=== PATIENT | female | born 1995 | race Two or more races ===

== ENCOUNTER 2019-02-06 14:14 | Inpatient (IN) | payer OTHER ==
[2019-02-06] MEDS ORDERED: BUTORPHANOL TARTRATE 1 MG/ML VIAL IVPB ONE (18:33)
[2019-02-06] MEDS ORDERED: PROMETHAZINE HCL 25 MG/1 ML VIAL IVPUSH ONE (18:33)
[2019-02-06] MEDS ORDERED: SODIUM PHOSPHATE/NA BIPHOS 133 ML ENEMA PR ONE (18:36)
[2019-02-06 18:43] VITALS: BMI 25.6
--- NOTE | 2019-02-06 18:43 | HP ---
Past Medical History - Primary Care Physician PCP:: Lauren Raphael - Admission Chief Complaint: 23 yrs , ectopic -1 , 39.1 weeks by sono admitted in labor .onset LP since 11.00 AM History of Present Illness: care at [address] [place] [address] Late registrant at 27 weeks on 11/14/18 from [facility] wt gain 10 lbs panel 11/14/18 O pos , hbsag neg, HEP c nr, HIV NEG, rpr nr, Rubella immune, Varicella immune , Sickle neg pap hgsil, Gc/Ct neg , Quantiferon neg , 1 hr Gtt 111, TFt wnl 36 weeks panel 12/20/18 gc/ct neg, gbs neg, hiv neg, h/h 11.7/34., plt 231 11/10/18 h/o uti diagnosed in ER Rx Po Macrobid bid x 7 days 11/21/18 sono 27.4 weeks , sliup, vx , cx short 1.8 cm funnelling , single UA , marginal cord insertion , prophylaxis 2 doses of steroid s were given pt had follow up with [facility] in [place] , records not available 12/11/18 colposcopy done History Source: Patient, Medical Record - Past Medical History MUD MILL TENDER: No: Migraine, Seizure Cardiovascular: No: HTN, Murmur Pulmonary: No: Asthma Gastrointestinal: No: Gastritis, GERD Renal/: Yes: UTI (11/10/18 treated with Macrobid x7 days) Reproductive: Yes: Ectopic (11/2017) ...: 2 ...Para: 0 ...Term: 0 ...: 0 ...Spon : 1 (Ectopic pregn Lt Tubal 11/14/2017) ...Induced : 0 ...LMP: 05/05/18 ... Weeks Gestation by Dates: 39.4 ...EDC by Dates: 02/09/19 ...EDC by Sono: 02/12/19 (39.1 weeks by sono ) Infectious Disease: No: AIDS, C-Diff, Herpes Zoster, HIV, MRSA, STD's, Tuberculosis, VREF, Other Psych: No: Addictions, Anxiety, Bipolar, Depression, Panic, Psychosis, Schizophrenia, Other Endocrine: No: Channing's Disease, [place]'s Disease, Diabetes Insipidus, Diabetes Mellitus, Hyperparathyroidism, Hyperthyroidism, Hypothyroidism, Osteopenia, SIADH, Other - Past Surgical History Hx Myomectomy: No Hx Transabdominal Cerclage: No Additional Surgical History: 11/2017 ? left salpingectomy partial for ectopic pregn at [facility] - Smoking History Have you smoked in the past 12 months: No - Alcohol/Substance Use Hx Alcohol Use: No History of Substance Use: reports: None Home Medications - Allergies Allergies/Adverse Reactions: Allergies Allergy/AdvReac Type Severity Reaction Status Date / Time No Known Allergies Allergy Verified 02/06/19 14:57 - Home Medications Home Medications: Ambulatory Orders Ferrous Sulfate [Feosol] 325 mg PO DAILY 11/21/18 Vits96/Iron Fum/Folic [ Tablet] 1 each PO DAILY 11/21/18 Physical Exam - Maternity Vital Signs: Vital Signs Temperature 97.6 F 02/06/19 15:05 Pulse Rate 118 H 02/06/19 17:16 Respiratory Rate 17 02/06/19 17:16 Blood Pressure 126/74 02/06/19 17:16 O2 Sat by Pulse Oximetry (%) Wt 140 LB Constitutional: Yes: Well Nourished, Moderate Distress Eyes: Yes: WNL HENT: Yes: WNL, Normocephalic Neck: Yes: WNL Cardiovascular: Yes: WNL Lungs: Clear to auscultation Breast(s): Yes: WNL - Abdominal Exam/OB Fundal Height: 40 Number of Fetuses: Single Presentation: Vertex Contractions: Yes Regularity: Irregular (3-5 min) Intensity: Mild/Mod Monitor Mode: External Heart Rate (range): 140-150 Heart Rate Location: [facility] Accelerations: Uniform Decelerations: None - Vaginal Exam/OB Vaginal Bleediing: No Speculum Exam: No Dilatation (cm): 4 Effacement (%): 70 Amniotic Membrane Status: Intact Presentation: Vertex/Position Station: -3 - Physical Exam Musculoskeletal: Yes: WNL Extremities: Yes: WNL. No: Calf Tenderness Edema: Yes Edema: LLE: 1+, RLE: 1+ Integumentary: Yes: Body Piercing (tongue rings), Tattoos Deep Tendon Reflex Grade: Normal +2 Psychiatric: Yes: WNL, Alert, Oriented Problem List - Problems (1) with 39 completed weeks gestation Code(s): Z3A.39 - 39 WEEKS GESTATION OF (2) Labor established Code(s): RDR6868 - Assessment/Plan 23 yrs , ectopic x1 , 39 .1 weeks in labor , GBS neg , s/p steroid x2 doses at 28.5 weeks gestation due to short cx plan trial vaginal delivery pt is trying to avoid pain meds or epidural analgesia
[2019-02-06] MEDS ORDERED: DEXTROSE 5%-LACTATED RINGERS 1,000 ML IV SCH (18:45)
[2019-02-06] MEDS ORDERED: BUTORPHANOL TARTRATE 1 MG/ML VIAL ONE (21:46)
[2019-02-06] MEDS ORDERED: PROMETHAZINE HCL 25 MG/1 ML VIAL ONE (21:47)
[2019-02-06] MEDS ORDERED: OXYTOCIN 20 UNITS in 0.9% NS 20 UNIT/1,000 ML INFUS.BAG IV ONE (22:00)
[2019-02-06] MEDS ORDERED: LIDOCAINE HCL 1% PRESERVATIVE FREE - 30ML VIAL ONE (22:00)
[2019-02-06 22:04] LABS: BASO % 0.2 % (0-2.0); EOS % 0.6 % (0-4.5); HEMATOCRIT 38.6 % (32.4-45.2); HEMOGLOBIN 13.1 GM/dL (10.7-15.3); LYMPH % 21.3 % (8-40); MCH 30.7 pg (25.7-33.7); MCHC 34.1 g/dl (32.0-36.0); MONO % 8.6 % (3.8-10.2); NEUT % 69.3 % (42.8-82.8); PLATELET COUNT 261 K/MM3 (134-434); RBC 4.29 M/mm3 (3.60-5.2); WHITE BLOOD COUNT 12.1 K/mm3 (4.0-10.0)
[2019-02-06 22:21] LABS: INR 0.94 (0.83-1.09); PROTHROMBIN TIME (PATIENT) 11.1 SEC (9.7-13.0)
[2019-02-06 22:23] LABS: ACTIVATED PTT 28.8 SECONDS (25.2-36.5)
[2019-02-06 22:27] LABS: CALCIUM 9.5 mg/dL (8.5-10.1); CREATININE 0.6 mg/dL (0.55-1.3); POTASSIUM 3.8 mmol/L (3.5-5.1)
[2019-02-06] MEDS ORDERED: BENZOCAINE 20% 57 GM BOTTLE TP PRN (23:07)
[2019-02-06] MEDS ORDERED: BENZOCAINE 28 GM HEMORRHOIDAL OINTMENT TP PRN (23:07)
[2019-02-06] MEDS ORDERED: METHYLERGONOVINE MALEATE 0.2 MG/1 ML AMP IM PRN (23:07)
[2019-02-06] MEDS ORDERED: WITCH HAZEL 50% (TUCKS) 40 PAD/JAR PAD TP PRN (23:07)
[2019-02-06] MEDS ORDERED: oxyCODONE HCL 5 MG TABLET PO PRN (23:07)
[2019-02-06] MEDS ORDERED: BISACODYL 10 MG SUPP.RECT RC PRN (23:07)
[2019-02-06] MEDS ORDERED: OXYTOCIN 20 UNITS in 0.9% NS 20 UNIT/1,000 ML INFUS.BAG IV SCH (23:15)
--- NOTE | 2019-02-06 23:21 | PN ---
Delivery - Delivery Vaginal Delivery: No Problems, Spontaneous (, [place] position, tight loop of cord around neck , clamped cut released before delivery of shoulder , shoulders delivered without dofficulty .nasal & oral suction done at perineum . cord segment cut for cord gas , cord blood collected, 2 artery , on vein noted in the cord . .placenta was delivered with membranes , sent for pathology .episiotomy was given & was sutured in layers with chr catgut #2/0. bladder cathterized & emptied , IL exam mucosa & sphincter was intact. sponge count was correct) EBL (cc): 350 (urine out put 75 ml vivienne color ) Delivery, Single - Stages of Labor Date 1st Stage Initiatied: 02/06/19 Time 1st Stage Initiated: 11:00 Date 2nd Stage Initiated: 02/06/19 Time 2nd Stage Initiated: 22:00 Date of Delivery: 02/06/19 Time of Delivery: 22:10 Date Placenta Delivered: 02/06/19 Time Placenta Delivered: 22:20 Placenta: Yes: Spontaneous, Uterine Exploration - Condition of Infant License Issuer/Propagator Present: No Infant Gender: Female Weight: 5 lb 14 oz Position: Left, OA (tight loop of cord around neckx1 clamped cut) - 1 Minute Total Score: 9 5 Minutes Total Score: 9 - [place] Feeding Plan Initial Plan: Exclusive throughout hospitalization Remarks - Remarks Remarks: 23 yrs ectopic -1 , 39.1 weeks in labor . GbS neg h/o steroids x2 doses at 28.5 weeks given due to short cx intrapartum course uneventful v/s stable
[2019-02-07] MEDS: ACETAMINOPHEN 325 MG TABLET (FP) PO PRN ×2 (00:42→07:43)
[2019-02-07] MEDS: IBUPROFEN 600 MG TABLET (FP) PO PRN ×2 (00:43→07:42)
[2019-02-07] MEDS: FERROUS SO4 325 MG TABLET (FP) PO SCH ×2 (07:42→17:57)
[2019-02-07 08:19] LABS: BASO % 0.3 % (0-2.0); EOS % 0.2 % (0-4.5); HEMATOCRIT 34.7 % (32.4-45.2); HEMOGLOBIN 11.9 GM/dL (10.7-15.3); LYMPH % 17.4 % (8-40); MCHC 34.2 g/dl (32.0-36.0); MEAN CELL VOLUME 90.5 fl (80-96); MEAN PLT VOLUME 8.1 fl (7.5-11.1); MONO % 8.5 % (3.8-10.2); NEUT % 73.6 % (42.8-82.8); PLATELET COUNT 219 K/MM3 (134-434); RBC 3.84 M/mm3 (3.60-5.2); RDW 14.1 % (11.6-15.6); WHITE BLOOD COUNT 14.5 K/mm3 (4.0-10.0)
--- NOTE | 2019-02-07 08:55 | PN ---
Post Progress Note - Subjective Subjective: no c/o cramps bleeding less voided after delivery Post Day: 1 Type of Delivery: Vital Signs: Vital Signs Temperature 98.5 F 02/07/19 07:56 Pulse Rate 85 02/07/19 07:56 Respiratory Rate 18 02/07/19 07:56 Blood Pressure 126/79 02/07/19 07:56 O2 Sat by Pulse Oximetry (%) 100 02/06/19 23:30 Breast Exam: Yes: Soft, Other (BF). No: Engorged Uterus: Yes: Fundus Firm, Fundus below umbilicus, Non-tender Lochia: Yes: Rubra Lochia, amount: Moderate Extremities: Yes: Calves non-tender Perineum: Yes: Episiotomy (healing. no soreness) Activity: Ambulating - Labs Labs: CBC WBC 12.1 K/mm3 (4.0-10.0) H 02/06/19 21:00 RBC 4.29 M/mm3 (3.60-5.2) 02/06/19 21:00 Hgb 13.1 GM/dL (10.7-15.3) 02/06/19 21:00 Hct 38.6 % (32.4-45.2) 02/06/19 21:00 MCV 90.0 fl (80-96) 02/06/19 21:00 MCH 30.7 pg (25.7-33.7) 02/06/19 21:00 MCHC 34.1 g/dl (32.0-36.0) 02/06/19 21:00 RDW 14.0 % (11.6-15.6) 02/06/19 21:00 Plt Count 261 K/MM3 (134-434) 02/06/19 21:00 MPV 8.0 fl (7.5-11.1) 02/06/19 21:00 Absolute Neuts (auto) 8.4 K/mm3 (1.5-8.0) H 02/06/19 21:00 Neutrophils % 69.3 % (42.8-82.8) 02/06/19 21:00 Lymphocytes % 21.3 % (8-40) 02/06/19 21:00 Monocytes % 8.6 % (3.8-10.2) 02/06/19 21:00 Eosinophils % 0.6 % (0-4.5) 02/06/19 21:00 Basophils % 0.2 % (0-2.0) 02/06/19 21: Nucleated RBC % 0 % (0-0) 02/06/19 21:00 Problem List - Problems (1) with 39 completed weeks gestation Code(s): Z3A.39 - 39 WEEKS GESTATION OF (2) Labor established Code(s): NRS5066 - (3) examination following vaginal delivery Code(s): Z39.2 - ENCOUNTER FOR ROUTINE FOLLOW-UP Assessment/Plan stable plan pp cbc pending discharge tomorrow.
[2019-02-07] MEDS: PRENATAL VITAMINS W/ FOLIC ACID TABLET (FP) PO SCH (09:21)
[2019-02-07] MEDS ORDERED: SENNOSIDES/DOCUSATE COMBO (SENNA PLUS) TABLET (UD) PO PRN (22:00)
[2019-02-08] MEDS: ACETAMINOPHEN 325 MG TABLET (FP) PO PRN (05:27)
[2019-02-08] MEDS: IBUPROFEN 600 MG TABLET (FP) PO PRN (05:28)
[2019-02-08] MEDS: PRENATAL VITAMINS W/ FOLIC ACID TABLET (FP) PO SCH (09:55)
[2019-02-08] MEDS: FERROUS SO4 325 MG TABLET (FP) PO SCH (09:56)
--- NOTE | 2019-02-08 10:02 | DS ---
Physical Exam-CONTINUOUS PILLOWCASE CUTTER Vital Signs: Vital Signs Temperature 98.1 F 02/07/19 20:06 Pulse Rate 100 H 02/07/19 20:06 Respiratory Rate 18 02/07/19 20:06 Blood Pressure 126/89 02/07/19 20:06 O2 Sat by Pulse Oximetry (%) 100 02/06/19 23:30 Constitutional: Yes: Well Nourished Eyes: Yes: Conjunctiva Clear HENT: Yes: Atraumatic Neck: Yes: Supple Cardiovascular: Yes: Regular Rate and Rhythm Respiratory: Yes: Regular Gastrointestinal: Yes: Normal Bowel Sounds ...Rectal Exam: Yes: WNL External Genitalia: Yes: Normal Vaginal Exam: Yes: Normal Cervix: Yes: Normal ....Post : Yes: Uterus firm Breast(s): Yes: WNL Musculoskeletal: Yes: WNL Extremities: Yes: WNL Neurological: Yes: Alert, Oriented Psychiatric: Yes: Alert, Oriented Labs: CBC, BMP 02/07/19 07:20 02/06/19 21:00 Delivery - Delivery Vaginal Delivery: No Problems, Spontaneous (, [place] position, tight loop of cord around neck , clamped cut released before delivery of shoulder , shoulders delivered without dofficulty .nasal & oral suction done at perineum . cord segment cut for cord gas , cord blood collected, 2 artery , on vein noted in the cord . .placenta was delivered with membranes , sent for pathology .episiotomy was given & was sutured in layers with chr catgut #2/0. bladder cathterized & emptied , [place] exam mucosa & sphincter was intact. sponge count was correct) Type of Anesthesia: Local Episiotomy/Laceration: Midline EBL (cc): 350 (urine out put 75 ml vivienne color ) Delivery, Single - Stages of Labor Date 1st Stage Initiatied: 02/06/19 Time 1st Stage Initiated: 11:00 Date 2nd Stage Initiated: 02/06/19 Time 2nd Stage Initiated: 22:00 Date of Delivery: 02/06/19 Time of Delivery: 22:10 Time Placenta Delivered: 22:20 Placenta: Yes: Spontaneous, Uterine Exploration - Condition of [place] Laminator Operator/Refueler Present: [place]: Buster RoachPraveen Gender: Female Weight: 5 lb 14 oz Position: Left, OA (tight loop of cord around neckx1 clamped cut) Total Hours ROM (Hrs/Mins): 25mins. - 1 Minute Total Score: 9 5 Minutes Total Score: 9 - [place] Feeding Plan Initial Plan: Exclusive throughout hospitalization Discharge Summary Reason For Visit: IN LABOR Current Active Problems Labor established (Acute) examination following vaginal delivery (Acute) with 39 completed weeks gestation (Acute) Procedures: Principal: Normal spontaneous vaginal delivery Hospital Course: Routine care Plan of Treatment: F/U with MD for care Condition: Stable - Instructions Diet, Activity, Other Instructions: Post Instructions DIET: Continue good diet high in protein, calcium, and iron rich foods. Drink at least eight (8) glasses of water daily in addition to other fluids. ct Regular diet MEDICATIONS: Continue vitamins and iron as previously directed. Motrin and Tylenol may be taken for minor discomfort. ACTIVITY: Mild to moderate exercise may be started in two (2) weeks. Take frequent rest periods. Resume normal activity after six (6) week check up. WOUND CARE OF OPERATIVE SITE: Continue use of perineal bottle until vaginal discharge stops. Keep area clean. Shower daily. Keep abdominal wound dry. Report any drainage or redness to physician. Tub baths, tampons and douches are not permitted for [address] Breast feeding & or Bottle feeding BREAST CARE: (For those that are not ): If engorgement occurs: Wear tight fitting bra. Take Tylenol or Motrin for pain. Apply cold packs (ice in bags to each breast ) FAMILY PLANNING: There are many control alternatives to pursue and they should be discussed at your first office visit. You may resume sexual activity after your six (6) week check up. (Remember, breast feeding is not a contraceptive) NEXT PHYSICIAN APPOINTMENT: Be certain to call for a four -six (4-6) week appointment, unless otherwise directed. Call Clinic or got to Emergency Dept if you have any of the following: Heavy vaginal bleeding Painful urination Leg pain Unusual odor noted to vaginal bleeding High fever Red streaking noted on breast Referrals: Lauren Raphael MD [Staff Physician] - Disposition: HOME - Home Medications Comprehensive Discharge Medication List: Ambulatory Orders Ferrous Sulfate [Feosol] 325 mg PO DAILY 11/21/18 Vits96/Iron Fum/Folic [ Tablet] 1 each PO DAILY 11/21/18 Acetaminophen [Tylenol .Regular Strength -] 650 mg PO Q3H PRN tablet 02/07/19 Benzocaine [Americaine 20% Parlin -] 1 spray TP PRN PRN bottle 02/07/19 Ferrous Sulfate [Feosol] 325 mg PO DAILY tab 02/07/19 Ibuprofen [Motrin -] 200 mg PO Q4H PRN tablet 02/07/19 Vitamins (Sjr) - 1 tab PO DAILY tablet 02/07/19 Witch Madonna 50% (Tucks) [Tucks Pads -] 1 pad TP PRN PRN pad 02/07/19
[2019-02-08 14:14] VITALS: BP 117/60; PULSE 69; TEMP 97.7
--- NOTE | 2019-02-08 17:11 | PATH ---
Surgical Pathology Report Patient Name: LYNNETTE CAVAZOS [facility]. Rec. 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 Specimen(s) Received PLACENTA Clinical History 39.1 weeks' gestation Positive HPV, history UTI, history of labor, ectopic Final Diagnosis PLACENTA, DELIVERY: 442 G THIRD TRIMESTER PLACENTA WITH TRIVASCULAR UMBILICAL CORD AND UNREMARKABLE PLACENTAL MEMBRANES. Electronically Signed Radha Feliciano M.D. Gross Description The specimen is received fresh labeled placenta and is a 442 gram, 18 x 16 x 1.5 cm. placenta with attached membranes and umbilical cord. The attached membranes are clear bales translucent and insert marginally. The umbilical cord measures 13 cm. in length and averages 1.3 cm. in diameter. The cord inserts eccentrically, 3 cm from nearest margin. No true knots or strictures are identified. Cut surface of the umbilical cord reveals 3 vessels. The surface is chaudhari-blue with minimal fibrin deposition and appropriate caliber vessels. The maternal surface is red-brown with focal defects. Sectioning reveals red-brown, spongy parenchyma. No lesions are identified. Animal Care Supervisor sections are submitted in three cassettes as follows: 1- membrane rolls and umbilical cord; 2-3- full thickness sections of placenta. MLSZ/02/07/2019 sanml/02/07/2019
== END 2019-02-08 13:35 | disposition home or self-care (01) | DRG 560 ==
LOC: JDEL 14:14 → JLDR 18:15 → J3W 02-07 00:25
PROVIDERS: ADMIT Obstetrics & Gynecology; ATTEND Obstetrics & Gynecology
PROC: 10E0XZZ Delivery of Products of Conception, External Approach (ICD-10-PCS; principal; 2019-02-06)
PROC: 0W8NXZZ Division of Female Perineum, External Approach (ICD-10-PCS; 2019-02-06)
DX: O69.81X0 Labor and delivery complicated by cord around neck, without compression, not applicable or unspecified (principal); Z3A.39 39 weeks gestation of pregnancy; Z37.0 Single live birth
CPT/HCPCS: 36415; 36600; 59409; 80048; 82803; 85025; 85610; 85730; 86593; 86850; 86900; 86901; 88307-TC